=== PATIENT | male | born 1975 | race Caucasian/White ===

== ENCOUNTER 2016-06-15 14:50 | Emergency (ER) | payer BC ==
--- NOTE | 2016-06-15 16:24 | ED ---
General Adult HPI - General Chief complaint: Chest Pain Stated complaint: chest pain, SOB Time Seen by Provider: 06/15/16 15:55 Source: patient, RN notes reviewed Mode of arrival: ambulatory - History of Present Illness Initial comments: Patient is a 41-year-old male who presents emergency room today with a chief complaint of left-sided chest pain. He does admit that at times it's reproducible to palpation. States had similar pain off and on over the last year and a half. Doesn't that he's had this checked by family doctor and cardiology in the past. Does admit to a stress test approximately 6 months ago. Patient does admit that he was walking in [place] when he felt short of breath and had this pain. He states it felt like it radiate into the left arm. Patient admits that it seemed to go away. He does admit that he did take Ativan. He states does not make it go away but makes him relax and not worry about. Patient does admit that today when he was outside picking up some sticks in the yard and felt pain come back again. States it does seem to be feeling better at this time but was concerned and thought it should be checked. Patient does admit that the symptoms are consistent with pain that is experienced in the past. Denies anything different. He denies any complaints associated symptoms at this time. Describes pain as sharp. Patient denies any recent fever, chills, back pain, abdominal pain, nausea or vomiting, numbness or tingling, dysuria or hematuria, constipation or diarrhea, headaches or visual changes, or any other complaints. - Related Data Previous Rx's Medication Instructions Recorded Albuterol Inhaler [Ventolin Hfa 1 - 2 puff INHALATION Q6HR PRN #1 12/22/14 Inhaler] inhaler methylPREDNISolone Dose Pack 4 mg PO DIRECTED #21 package 12/22/14 [Medrol Dose Pack] Ibuprofen [Motrin] 600 mg PO Q6HR PRN #40 day 06/15/16 Allergies Allergy/AdvReac Type Severity Reaction Status Date / Time No Known Allergies Allergy Verified 06/15/16 15:57 Review of Systems ROS Statement: Those systems with pertinent positive or pertinent negative responses have been documented in the HPI. ROS Other: All systems not noted in ROS Statement are negative. Past Medical History Additional Past Medical History / Comment(s): sarcoidosis History of Any Multi-Drug Resistant Organisms: None Reported Past Surgical History: Hernia Repair, Orthopedic Surgery, Tonsillectomy Additional Past Surgical History / Comment(s): left lower leg Past Psychological History: Anxiety Smoking Status: Current some day smoker Past Alcohol Use History: Occasional Past Drug Use History: None Reported General Exam - General Exam Comments Initial Comments: General: The patient is awake and alert, in no distress, and does not appear acutely ill. Eye: Pupils are equal, round and reactive to light, extra-ocular movements are intact. No nystagmus. There is normal conjunctiva bilaterally. No signs of icterus. Ears, nose, mouth and throat: There are moist mucous membranes and no oral lesions. Neck: The neck is supple, there is no tenderness or JVD. Cardiovascular: There is a regular rate and rhythm. No murmur, rub or gallop is appreciated. Respiratory: Lungs are clear to auscultation, respirations are non-labored, breath sounds are equal. No wheezes, stridor, rales, or rhonchi. Gastrointestinal: Soft, non-distended, non-tender abdomen without masses or organomegaly noted. There is no rebound or guarding present. No CVA tenderness. Bowel sounds are unremarkable. Musculoskeletal: Normal ROM, no tenderness. Strength 5/5. Sensation intact. Pulses equal bilaterally 2+. Neurological: A&O x 3. CN II-XII intact, There are no obvious motor or sensory deficits. Coordination appears grossly intact. Speech is normal. Skin: Skin is warm and dry and no rashes or lesions are noted. Psychiatric: Cooperative, appropriate mood & affect, normal judgment. Course Vital Signs 06/15/16 06/15/16 15:54 16:45 Temperature 98.3 F Pulse Rate 66 60 Respiratory 20 14 Rate Blood Pressure 126/83 121/82 O2 Sat by Pulse 98 98 Oximetry EKG Findings - EKG Comments: EKG Findings:: EKG performed at 1514: A 12-lead EKG was performed and interpreted by me as showing the following: Rate is 69, and rhythm is normal sinus. There are normal QRS complexes and normal R-wave progression. ST segments have no elevation or depression, and SC segments appear normal. Medical Decision Making - Medical Decision Making Patient reexamined at this time shows no signs of distress. Patient states pain has improved and feeling better. Patient's chest x-ray negative. Patient' s labs were reviewed and are unremarkable. Negative cardiac enzymes. Patient' s pain reproduced on palpation to the anterior chest wall. He states had several workups in the past for his heart. Does admit to most recent stress test approximately 6 months ago. Patient's symptoms started yesterday. Patient will be discharged home at this time and advised follow-up with his family doctor over the next 2 days along with cardiology and pulmonology. Patient advised return if any symptoms increase or worsen or for any other concerns. - Lab Data Result diagrams: 06/15/16 16:40 06/15/16 16:40 Lab Results 06/15/16 06/15/16 06/15/16 Range/Units 16:40 16:40 16:40 WBC 4.3 (3.8-10.6) k/uL RBC 5.20 (4.30-5.90) m/uL Hgb 15.7 (13.0-17.5) gm/dL Hct 47.6 (39.0-53.0) % MCV 91.6 (80.0-100.0) fL MCH 30.2 (25.0-35.0) pg MCHC 33.0 (31.0-37.0) g/dL RDW 13.5 (11.5-15.5) % Plt Count 216 (150-450) k/uL Neutrophils % 65 % Lymphocytes % 16 % Monocytes % 8 % Eosinophils % 7 % Basophils % 1 % Neutrophils # 2.8 (1.3-7.7) k/uL Lymphocytes # 0.7 L (1.0-4.8) k/uL Monocytes # 0.3 (0-1.0) k/uL Eosinophils # 0.3 (0-0.7) k/uL Basophils # 0.1 (0-0.2) k/uL PT (9.0-12.0) sec INR (<1.1) APTT (22.0-30.0) sec Sodium 143 (137-145) mmol/L Potassium 4.5 (3.5-5.1) mmol/L Chloride 104 (98-107) mmol/L Carbon Dioxide 25 (22-30) mmol/L Anion Gap 14 mmol/L BUN 14 (9-20) mg/dL Creatinine 0.78 (0.66-1.25) mg/dL Est GFR (MDRD) Af Amer >60 (>60 ml/min/1.73 sqM) Est GFR (MDRD) Non-Af >60 (>60 ml/min/1.73 sqM) Glucose 85 (74-99) mg/dL Calcium 9.8 (8.4-10.2) mg/dL Magnesium 1.9 (1.6-2.3) mg/dL Total Bilirubin 0.8 (0.2-1.3) mg/dL AST 26 (17-59) U/L ALT 39 (21-72) U/L Alkaline Phosphatase 41 (38-126) U/L Total Creatine Kinase 110 (55-170) U/L CK-MB (CK-2) 0.8 (0.0-2.4) ng/mL CK-MB (CK-2) Rel Index 0.7 Troponin I <0.012 (0.000-0.034) ng/mL Total Protein 7.7 (6.3-8.2) g/dL Albumin 5.0 (3.5-5.0) g/dL 06/15/16 Range/Units 16:40 WBC (3.8-10.6) k/uL RBC (4.30-5.90) m/uL Hgb (13.0-17.5) gm/dL Hct (39.0-53.0) % MCV (80.0-100.0) fL MCH (25.0-35.0) pg MCHC (31.0-37.0) g/dL RDW (11.5-15.5) % Plt Count (150-450) k/uL Neutrophils % % Lymphocytes % % Monocytes % % Eosinophils % % Basophils % % Neutrophils # (1.3-7.7) k/uL Lymphocytes # (1.0-4.8) k/uL Monocytes # (0-1.0) k/uL Eosinophils # (0-0.7) k/uL Basophils # (0-0.2) k/uL PT 11.6 (9.0-12.0) sec INR 1.2 (<1.1) APTT 26.6 (22.0-30.0) sec Sodium (137-145) mmol/L Potassium (3.5-5.1) mmol/L Chloride (98-107) mmol/L Carbon Dioxide (22-30) mmol/L Anion Gap mmol/L BUN (9-20) mg/dL Creatinine (0.66-1.25) mg/dL Est GFR (MDRD) Af Amer (>60 ml/min/1.73 sqM) Est GFR (MDRD) Non-Af (>60 ml/min/1.73 sqM) Glucose (74-99) mg/dL Calcium (8.4-10.2) mg/dL Magnesium (1.6-2.3) mg/dL Total Bilirubin (0.2-1.3) mg/dL AST (17-59) U/L ALT (21-72) U/L Alkaline Phosphatase (38-126) U/L Total Creatine Kinase (55-170) U/L CK-MB (CK-2) (0.0-2.4) ng/mL CK-MB (CK-2) Rel Index Troponin I (0.000-0.034) ng/mL Total Protein (6.3-8.2) g/dL Albumin (3.5-5.0) g/dL Disposition Clinical Impression: Chest wall pain Disposition: HOME SELF-CARE Condition: Good Instructions: Chest Wall Pain (ED) Additional Instructions: Please use medication as discussed. Please follow-up with family doctor / cardiology/pulmonary in the next 2 days of symptoms have not improved. Please return to emergency room if the symptoms increase or worsen or for any other concerns. Prescriptions: Ibuprofen [Motrin] 600 mg PO Q6HR PRN #40 day PRN Reason: Pain Time of Disposition: 17:47
[2016-06-15 16:54] LABS: Basophils # (A) 0.1 k/uL (0-0.2); Basophils % (A) 1 %; CH 31.4; CHCM 34.5; Eosinophils # (A) 0.3 k/uL (0-0.7); Eosinophils % (A) 7 %; HCT 47.6 % (39.0-53.0); HDW 2.34; HGB 15.7 gm/dL (13.0-17.5); Luc # (Auto) 0.14; Luc % (Auto) 3; Lymphocytes # (A) 0.7 k/uL (1.0-4.8); Lymphocytes % (A) 16 %; MCH 30.2 pg (25.0-35.0); MCV 91.6 fL (80.0-100.0); Mean Platelet Volume 8.5; Monocytes # (A) 0.3 k/uL (0-1.0); Monocytes % (A) 8 %; Neutrophils # (A) 2.8 k/uL (1.3-7.7); Neutrophils % (A) 65 %; RDW 13.5 % (11.5-15.5); WBC 4.3 k/uL (3.8-10.6); WBC (Perox) 4.22
[2016-06-15 17:06] LABS: INR 1.2 (<1.1); Partial Thromboplastin Time 26.6 sec (22.0-30.0); Prothrombin Time 11.6 sec (9.0-12.0)
[2016-06-15 17:07] LABS: ALT 39 U/L (21-72); AST 26 U/L (17-59); Alkaline Phosphatase 41 U/L (38-126); Anion Gap 14 mmol/L; Blood Urea Nitrogen 14 mg/dL (9-20); Calcium 9.8 mg/dL (8.4-10.2); Carbon Dioxide 25 mmol/L (22-30); Chloride 104 mmol/L (98-107); Glucose 85 mg/dL (74-99); Magnesium 1.9 mg/dL (1.6-2.3); Non-African American GFR(MDRD) >60 (>60 ml/min/1.73 sqM); Potassium 4.5 mmol/L (3.5-5.1); Sodium 143 mmol/L (137-145); Total Bilirubin 0.8 mg/dL (0.2-1.3); Total Protein 7.7 g/dL (6.3-8.2)
[2016-06-15 17:13] LABS: Creatine Kinase 110 U/L (55-170)
[2016-06-15 17:26] LABS: Creatine Kinase MB 0.8 ng/mL (0.0-2.4); Troponin I <0.012 ng/mL (0.000-0.034)
--- NOTE | 2016-06-15 17:28 | XR ---
EXAMINATION TYPE: XR chest 2V DATE OF EXAM: 06/15/2016 5:21 PM COMPARISON: 12/22/2014 HISTORY: Chest pain TECHNIQUE: Frontal and lateral views of the chest are obtained. FINDINGS: Heart and mediastinum are normal. Lungs are clear. Diaphragm is normal. Bony thorax is int act. There are chest leads. There is mild pectus excavatum chest deformity. IMPRESSION: No active cardiopulmonary disease. No change.
[2016-06-15 18:04] VITALS: BP 124/77; PULSE 67; RESP 16; TEMP 97.4
== END 2016-06-15 18:03 | disposition home or self-care (01) ==
LOC: EC 14:50
DX: R07.89 Other chest pain (principal); R06.02 Shortness of breath; F17.200 Nicotine dependence, unspecified, uncomplicated
CPT/HCPCS: 36415; 71020; 80053; 82550; 82553; 83735; 84484; 85025; 85610; 85730; 93005; 99285

== ENCOUNTER 2019-02-14 20:32 | Emergency (ER) | payer BC ==
[2019-02-14] MEDS ORDERED: LIDOCAINE 1% INJ 10MG/ML (20 ML MDV) SQ ONE (20:54)
[2019-02-14] MEDS ORDERED: IBUPROFEN 600 MG TAB PO STA (20:54)
[2019-02-14 20:55] VITALS: RESP 18
[2019-02-14] MEDS ORDERED: SODIUM CHLORIDE 0.9% IRRIG 1,000 ML BTL IRRIGATION ONE (20:55)
[2019-02-14] MEDS ORDERED: DIPH,PERTUS(ACELL)TETVAC-LF 0.5 ML VIAL IM ONE (20:55)
--- NOTE | 2019-02-14 21:16 | XR ---
EXAMINATION TYPE: XR hand complete LT DATE OF EXAM: 02/14/2019 COMPARISON: NONE HISTORY: Thumb laceration. Pain. TECHNIQUE: 3 views. FINDINGS: I see no fracture nor dislocation. Joint spaces are normal. There is soft tissue laceration defect o n the IP joint of the thumb. IMPRESSION: Laceration defect. No fracture. No sign of a foreign body.
--- NOTE | 2019-02-14 21:29 | ED ---
General Adult HPI - General Chief complaint: Wound/Laceration Stated complaint: L Thumb Lac Time Seen by Provider: 02/14/19 20:48 Source: patient Mode of arrival: ambulatory Limitations: no limitations - History of Present Illness Initial comments: . Patient is a 43-year-old male presenting to emergency Department with a chief complaint of a cut on the finger. Patient reports he was adjusting his rearview mirror when he lacerated the palmar aspect of his left thumb. Patient is not on blood thinners. Patient is unaware of his tetanus status. Patient reports difficulty with flexion of the left thumb but is able to fully extend it. Patient has full abduction and adduction in the thumb. Patient denies any edema or erythema. Patient reports that could be foreign bodies in the finger. Patient denies taking medication to alleviate the pain. Patient denies any alleviating or aggravating factors. Patient reports the pain is a 3 thumb. - Related Data Previous Rx's Medication Instructions Recorded Albuterol Inhaler [Ventolin Hfa 1 - 2 puff INHALATION Q6HR PRN #1 12/22/14 Inhaler] inhaler methylPREDNISolone Dose Pack 4 mg PO DIRECTED #21 package 12/22/14 [Medrol Dose Pack] Ibuprofen [Motrin] 600 mg PO Q6HR PRN #40 day 06/15/16 Allergies Allergy/AdvReac Type Severity Reaction Status Date / Time No Known Allergies Allergy Verified 02/14/19 20:49 Review of Systems ROS Statement: Those systems with pertinent positive or pertinent negative responses have been documented in the HPI. ROS Other: All systems not noted in ROS Statement are negative. Past Medical History Additional Past Medical History / Comment(s): sarcoidosis History of Any Multi-Drug Resistant Organisms: None Reported Past Surgical History: Hernia Repair, Orthopedic Surgery, Tonsillectomy Additional Past Surgical History / Comment(s): left lower leg Past Psychological History: Anxiety Smoking Status: Former smoker Past Alcohol Use History: Occasional Past Drug Use History: None Reported General Exam - General Exam Comments Initial Comments: General: Well-developed well-nourished distress HEENT: Normocephalic/atraumatic, PERLL, pharynx erythema, swallowing well, EAC no erythema, no exudates, TM clear, no cervical lymph nodes Neck: Supple, nontender, trachea midline Chest/Lungs: Normal respirations, no signs of respiratory distress clear to auscultation bilaterally no wheezes, rales, rhonchi Cardiac: Regular rate and rhythm, normal S1-S2, no murmurs rubs or gallops Abdomen/GI: Soft nontender, bowel sounds equal or quadrant x4, no guarding, no rebound no CVA tenderness Musculoskeletal: 1.5 cm laceration on the palmar aspect of the left thumb, no active bleeding, limited range of motion with flexion, mild tenderness to palpation, no numbness or tingling, normal capillary refill, +2 ulnar radial pulses bilaterally. Skin: Warmth, no rashes or lesions, no cyanosis or diaphoresis Neurologic: AAO x 3, CN 2-12 intact, Psychiatric: Mood and affect normal, judgment normal Limitations: no limitations Course Vital Signs 02/14/19 02/14/19 20:49 22:52 Temperature 98.1 F 98.3 F Pulse Rate 76 75 Respiratory 18 18 Rate Blood Pressure 118/73 121/79 O2 Sat by Pulse 98 99 Oximetry Procedures - Laceration Laceration #1 Consent Obtained: verbal consent Indication: laceration Site: hand (Thumb) Size (cm): 2 Description: linear Depth: simple, single layer Sedation/Analgesia: none Anesthetic Used: lidocaine 1% Anesthesia Technique: local infiltration Amount (mls): 5 Pre-repair: irrigated extensively Type of Sutures: nylon Size of Sutures: 4-0 Number of Sutures: 3 Technique: simple, interrupted Patient Tolerated Procedure: well Medical Decision Making - Medical Decision Making Patient is a 43-year-old male presenting to emergency Department with a chief complaint of a cut on his finger. Patient appears to have a 1.5 cm laceration on the palmar aspect left thumb. Laceration site was repaired with 3 sutures. Tetanus prophylaxis was administered. Patient tolerated the procedure well. Patient advised to return to emergency Department in 14 days for suture removal. Patient was to follow proper motor structures. Strict return parameters were thoroughly discussed the patient was or standing agreeable. Case discussed with physician. Disposition Clinical Impression: Laceration Disposition: HOME SELF-CARE Condition: Stable Instructions (If sedation given, give patient instructions): Care For Your Stitches (DC), Laceration (DC) Additional Instructions: Please follow proper wound care structures. Please return to emergency department to 14 days for suture removal. Or sooner if symptoms worsen. Is patient prescribed a controlled substance at d/c from ED?: No Referrals: Lupis Vasquez MD [Primary Care Provider] - 1-2 days Time of Disposition: 22:36
[2019-02-14 22:56] VITALS: BP 121/79; PULSE 75; TEMP 98.3
== END 2019-02-14 22:56 | disposition home or self-care (01) ==
LOC: EC 20:32
DX: S61.012A Laceration without foreign body of left thumb without damage to nail, initial encounter (principal); Z23 Encounter for immunization; Z87.891 Personal history of nicotine dependence; W25.XXXA Contact with sharp glass, initial encounter; Y92.810 Car as the place of occurrence of the external cause
CPT/HCPCS: 73130; 90715; 99283; 90471; 12001; J2001

== ENCOUNTER → 2024-02-18 | Outpatient (CLI) | payer BC ==
--- NOTE | 2024-02-18 16:08 | XR ---
EXAMINATION TYPE: XR abdomen 2V DATE OF EXAM: 02/18/2024 3:24 PM CLINICAL INDICATION: Male, 48 years old with history of R10.9, K59.00 PAIN ACUTE CONSTIPATION; [facility] COMPARISON: None. TECHNIQUE: Two views of the abdomen were obtained. FINDINGS: The bowel gas pattern is nonspecific without dilated loops of small or large bowel. There i s no evidence for organomegaly or pneumoperitoneum. The osseous structures are intact. Pelvic phleb oliths are present. Fecal material and gas are demonstrated throughout the colon and rectum. IMPRESSION: Nonspecific bowel gas pattern without radiographic evidence for acute process.
== END | disposition home or self-care (01) ==
LOC: RADXRMAIN 14:54
PROVIDERS: ATTEND Nurse Practitioner Family
DX: K59.00 Constipation, unspecified (principal); R10.9 Unspecified abdominal pain
CPT/HCPCS: 74019

== ENCOUNTER → 2024-09-13 | Outpatient (CLI) | payer BC ==
--- NOTE | 2024-09-13 15:17 | CT ---
Head CT with contrast HISTORY: Migraine headaches. COMPARISON: 05/20/2016. TECHNIQUE: Multiple axial images are obtained from skull base to vertex finding uneventful administra tion of nonionic IV contrast material. FINDINGS: The ventricles, basal cisterns and sulci over the convexities within normal limits and there is no ma ss effect or shift of midline structures. No abnormal density is seen throughout the brain parenchyma and there is no acute intra or extra-axia l hemorrhage. Following contrast administration, there is no pathological enhancement. The posterior fossa and brainstem, fourth ventricle and cerebellar pontine angles appear normal. The intraorbital contents appear normal and symmetric. Visualized paranasal sinuses and mastoid air cells are well aerated. IMPRESSION: No significant abnormality seen with no interval change. [facility], Workstation: [id number] 09/13/2024 3:14 PM
== END | disposition home or self-care (01) ==
LOC: RADCTMAIN 14:36
PROVIDERS: ATTEND Family Medicine
DX: G44.099 Other trigeminal autonomic cephalgias (TAC), not intractable (principal)
CPT/HCPCS: 70470; Q9967